=== PATIENT | male | born 2000 | race Native Hawaiian/Other Pacific Islander ===

== ENCOUNTER 2023-03-26 00:13 | Emergency (ER) | payer OTHER ==
[~2023-03-26] VITALS: Ht 188 cm; Wt 72.6 kg
[2023-03-26 00:13] VITALS: TEMP 98.8
[2023-03-26 01:40] VITALS: BP 115/67
== END 2023-03-26 01:40 | disposition home or self-care (01) ==
LOC: ED 00:13
DX: J45.901 Unspecified asthma with (acute) exacerbation (principal); F41.9 Anxiety disorder, unspecified
CPT/HCPCS: 94664; 99283